=== PATIENT | male | born 1970 | race Caucasian/White ===

== ENCOUNTER 2024-03-23 05:30 | Inpatient (IN) | payer OTHER ==
[2024-03-23] MEDS ORDERED: Heparin 25,000 UNITS/D5W 500 ml bag ONE (05:37)
[2024-03-23] MEDS ORDERED: Morphine 4 MG/ML VIAL ONE (05:47)
[2024-03-23] MEDS ORDERED: Ondansetron PF 4 MG/2 ML Vial ONE (05:48)
[2024-03-23 05:49] LABS: #Basophils 0.06 10x3/uL (0.0-0.2); %Basophils 0.9 % (0.0-1.0); %Eosinophils 6.5 % (0.0-10.0); %Lymphocytes 24.7 % (21.0-51.0); %Monocytes 6.9 % (0.0-10.0); %Neutrophils 60.8 % (42.0-75.0); Hematocrit 36.4 % (42.0-52.0); Hemoglobin 12.8 g/dL (14.0-18.0); Mean Corpuscular HGB CONC 35.2 g/dL (32.0-36.0); Mean Corpuscular Hemoglobin 30.6 pg (27.0-31.0); Mean Corpuscular Volume 87.1 fL (78.0-98.0); Mean Platelet Volume 8.9 fL (7.4-10.4); Platelet Count 177 10x3/uL (130-400); RBC Distribution Width 12.2 % (11.5-14.5); Red Blood Cell (RBC) Count 4.18 mill/uL (4.70-6.10)
[2024-03-23 06:04] LABS: INR-International Normal Ratio 1.2; Prothrombin Time 15.3 sec (12.0-14.7)
[2024-03-23 06:27] LABS: Troponin I 0.024 ng/mL (< 0.028)
[2024-03-23 07:05] LABS: ALT (SGPT) 8 U/L (Less than 45); AST (SGOT) 23 U/L (11-34); Albumin 3.8 g/dL (3.1-4.5); Alkaline Phosphatase 43 U/L (40-110); Anion Gap 16 mmol/L (10-20); BUN (Urea Nitrogen) 12 mg/dL (8.4-25.7); Bilirubin, Total 0.5 mg/dL (0.3-1.2); Calc. Creatinine Clearance 0 mL/min (70-130); Calcium 8.9 mg/dL (7.8-10.44); Carbon Dioxide 17 mmol/L (22-29); Chloride 108 mmol/L (98-107); Estimated GFR 91; Globulin 3.3 g/dL (2.4-3.5); Glucose 117 mg/dL (70-105); Potassium 4.5 mmol/L (3.5-5.1); Protein, Total 7.1 g/dL (6.0-8.3); Sodium 136 mmol/L (136-145)
[2024-03-23] MEDS ORDERED: Iopamidol 370 76% 100 ML VIAL ONE (10:22)
[2024-03-23] MEDS ORDERED: Nitroglycerin 2% Ointment 1 INCH/1 GM Packet ONE (12:25)
[2024-03-23] MEDS ORDERED: Ondansetron PF 4 MG/2 ML Vial IVP PRN (12:38)
[2024-03-23] MEDS ORDERED: Calcium Carbonate 500 MG ChewTAB PO PRN (12:38)
[2024-03-23] MEDS ORDERED: Senokot S 8.6-50 MG TAB PO PRN (12:38)
[2024-03-23] MEDS ORDERED: Bisacodyl 5 MG TAB PO PRN (12:38)
[2024-03-23] MEDS ORDERED: Ondansetron ODT 4 MG TAB PO PRN (12:38)
[2024-03-23] MEDS ORDERED: Acetaminophen 650 MG Suppository PR PRN (12:38)
[2024-03-23 12:55] LABS: Troponin I 4.697 ng/mL (< 0.028)
[2024-03-23 13:52] LABS: Hemoglobin 13.5 g/dL (14.0-18.0); Platelet Count 193 10x3/uL (130-400)
[2024-03-23 14:25] LABS: INR-International Normal Ratio 1.1; Prothrombin Time 14.7 sec (12.0-14.7)
[2024-03-23 14:26] LABS: PTT 47.1 sec (22.9-36.1)
[2024-03-23 14:56] LABS: Troponin I 7.082 ng/mL (< 0.028)
[2024-03-23] MEDS ORDERED: Communication Order-Pharmacy FS SCH (16:00)
[2024-03-23 18:35] VITALS: BMI 28.3
[2024-03-23 19:36] LABS: Troponin I 24.878 ng/mL (< 0.028)
[2024-03-23] MEDS: Heparin 10,000 UNITS/ 10 ML VIAL SLOW IVP SCH (20:02)
[2024-03-23] MEDS: Nitroglycerin 0.4 MG TAB (25 Tab Bottle) SL PRN (20:06)
[2024-03-23] MEDS: Morphine 2 MG/ML VIAL SLOW IVP SCH (20:41)
[2024-03-23] MEDS: Rosuvastatin 20 MG TAB PO SCH (20:41)
[2024-03-23] MEDS ORDERED: Electrolyte Replacement Protocol 1 EACH FS PRN (23:27)
[2024-03-24] MEDS: Morphine 2 MG/ML VIAL SLOW IVP PRN (02:44)
[2024-03-24 03:13] LABS: #Basophils 0.06 10x3/uL (0.0-0.2); %Basophils 0.6 % (0.0-1.0); %Eosinophils 4.4 % (0.0-10.0); %Monocytes 6.7 % (0.0-10.0); Hematocrit 37.7 % (42.0-52.0); Hemoglobin 12.9 g/dL (14.0-18.0); Mean Corpuscular HGB CONC 34.2 g/dL (32.0-36.0); Mean Corpuscular Hemoglobin 30.6 pg (27.0-31.0); Mean Corpuscular Volume 89.3 fL (78.0-98.0); Mean Platelet Volume 8.7 fL (7.4-10.4); Platelet Count 175 10x3/uL (130-400); RBC Distribution Width 12.4 % (11.5-14.5); Red Blood Cell (RBC) Count 4.22 mill/uL (4.70-6.10)
[2024-03-24] MEDS: Nitroglycerin 2% Ointment 1 INCH/1 GM Packet TOP SCH (03:17)
[2024-03-24 03:26] LABS: Anion Gap 14 mmol/L (10-20); BUN (Urea Nitrogen) 12 mg/dL (8.4-25.7); Calc. Creatinine Clearance 117 mL/min (70-130); Calcium 9.2 mg/dL (7.8-10.44); Carbon Dioxide 21 mmol/L (22-29); Cardiac Risk 4.1 (Less than 4.5); Chloride 107 mmol/L (98-107); Cholesterol 134 mg/dl (< 200 Desired); Estimated GFR 91; Glucose 112 mg/dL (70-105); HDL Cholesterol 33 mg/dL (>60 Neg Risk); LDL Cholesterol, Calculated 76 mg/dL; Magnesium 2.1 mg/dL (1.6-2.6); Sodium 138 mmol/L (136-145); Triglycerides 126 mg/dL (Less than 150)
[2024-03-24] MEDS: Heparin 25,000 units/D5W 500 ML IVPB SCH (05:12)
[2024-03-24] MEDS: Pantoprazole 40 MG DR.TAB PO SCH (06:35)
[2024-03-24] MEDS: Aspirin 81 mg Enteric Coated Tablet PO SCH (06:35)
[2024-03-24] MEDS ORDERED: Midazolam HCl 2 mg/2 ml Vial ONE (08:05)
[2024-03-24] MEDS ORDERED: fentaNYL 50 mcg/mL 1 mL Vial ONE (08:05)
[2024-03-24] MEDS ORDERED: Verapamil 5 MG/2 ML VIAL ONE (08:05)
[2024-03-24] MEDS ORDERED: Heparin 10,000 UNITS/ 10 ML VIAL ONE (08:06)
[2024-03-24] MEDS ORDERED: Nitroglycerin 50 MG/250 ML BOT 250 ML ONE (08:06)
[2024-03-24] MEDS ORDERED: Morphine 4 MG/ML VIAL ONE (09:21)
[2024-03-24] MEDS ORDERED: Tirofiban-0.9% Sodium Chloride 250 ML ONE (09:30)
[2024-03-24] MEDS ORDERED: Sodium Chloride 0.9% 200 ML IV PRN (10:12)
[2024-03-24] MEDS ORDERED: Nitroglycerin 0.4 MG TAB (25 Tab Bottle) SL PRN (10:12)
[2024-03-24] MEDS ORDERED: Acetaminophen/Codeine 30-300mg Tablet PO PRN (10:12)
[2024-03-24] MEDS ORDERED: Iopamidol 370 76% 100 ML VIAL ONE (11:23)
[2024-03-24] MEDS: Acetaminophen/Codeine 30-300mg Tablet PO PRN (13:06)
[2024-03-24] MEDS: Tirofiban-0.9% Sodium Chloride 250 ML IVPB SCH (18:24)
[2024-03-24] MEDS: Acetaminophen 325 MG TAB PO PRN (18:29)
[2024-03-24 22:58] LABS: Critical Call Chem Troponin I RESULT DECREASING; Troponin I 19.691 ng/mL (< 0.028)
[2024-03-25 04:02] LABS: #Basophils 0.07 10x3/uL (0.0-0.2); %Eosinophils 6.3 % (0.0-10.0); %Lymphocytes 27.3 % (21.0-51.0); %Monocytes 8.2 % (0.0-10.0); %Neutrophils 57.1 % (42.0-75.0); Hematocrit 37.8 % (42.0-52.0); Hemoglobin 13.1 g/dL (14.0-18.0); Mean Corpuscular HGB CONC 34.7 g/dL (32.0-36.0); Mean Corpuscular Hemoglobin 30.4 pg (27.0-31.0); Mean Corpuscular Volume 87.7 fL (78.0-98.0); Mean Platelet Volume 8.6 fL (7.4-10.4); Platelet Count 167 10x3/uL (130-400); RBC Distribution Width 12.1 % (11.5-14.5); Red Blood Cell (RBC) Count 4.31 mill/uL (4.70-6.10)
[2024-03-25 04:39] LABS: Anion Gap 13 mmol/L (10-20); BUN (Urea Nitrogen) 12 mg/dL (8.4-25.7); Calc. Creatinine Clearance 102 mL/min (70-130); Calcium 9.4 mg/dL (7.8-10.44); Carbon Dioxide 22 mmol/L (22-29); Chloride 108 mmol/L (98-107); Estimated GFR 77; Glucose 114 mg/dL (70-105); Sodium 139 mmol/L (136-145)
[2024-03-25 13:32] VITALS: TEMP 98.2
[2024-03-25 19:58] VITALS: BP 114/76
== END 2024-03-25 21:30 | disposition short-term general hospital (02) | DRG 282 ==
LOC: EEVIPCON 05:30 → ERS 05:30 → 2SE 16:07
PROVIDERS: ADMIT Internal Medicine; ATTEND Internal Medicine
PROC: 4A023N7 Measurement of Cardiac Sampling and Pressure, Left Heart, Percutaneous Approach (ICD-10-PCS; principal; 2024-03-24)
PROC: B2151ZZ Fluoroscopy of Left Heart using Low Osmolar Contrast (ICD-10-PCS; 2024-03-24)
PROC: B2111ZZ Fluoroscopy of Multiple Coronary Arteries using Low Osmolar Contrast (ICD-10-PCS; 2024-03-24)
DX: I21.4 Non-ST elevation (NSTEMI) myocardial infarction (principal); E78.5 Hyperlipidemia, unspecified; I25.110 Atherosclerotic heart disease of native coronary artery with unstable angina pectoris; I10 Essential (primary) hypertension; E78.00 Pure hypercholesterolemia, unspecified; Z98.890 Other specified postprocedural states
CPT/HCPCS: 36415; 71045; 71275; 80048; 80053; 80061; 83735; 84484; 85025; 85347; 85610; 85730; 93005; 93010; 93306; 93458; 93798; 94760; 99152; 99153; C1769; C1887; C1894; J1644; J2250; J2270; J2272; J2405; J3010; J3246; Q9967